=== PATIENT | female | born 1970 | race Caucasian/White ===

== ENCOUNTER 2024-08-13 12:20 | Outpatient (REF) | payer OTHER, SELFPAY ==
[2024-08-14 11:43] LABS: CRP High Sensitivity <0.2 mg/L
[2024-08-19 16:59] LABS: Lipoprotein A 328 nmol/L (<75)
== END 2024-08-13 12:21 | disposition home or self-care (01) ==
LOC: HO.10HDL 12:20
PROVIDERS: Visit Provider Internal Medicine
DX: M79.10 Myalgia, unspecified site (principal); E78.00 Pure hypercholesterolemia, unspecified
CPT/HCPCS: 36415; 83695; 86141